=== PATIENT | female | born 1940 | race Caucasian/White ===

== ENCOUNTER 2017-08-07 13:02 | Outpatient (CLI) | payer MEDICARE, BC ==
[2017-08-07] MEDS ORDERED: Gadobenate Dimeglumine 529 MG/1 ML (20ML VIAL) ONE (15:06)
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
--- NOTE | 2017-08-07 16:42 | MRI ---
MRI OF THE LUMBAR SPINE WITH AND WITH CONTRAST: 08/07/17 HISTORY: Low back pain. History of back surgery in 2008. Spinal stenosis. TECHNIQUE: Multiplanar and multisequence MR images were obtained of the lumbar spine without and with IV contras t. FINDINGS: There is grade I anterolisthesis of L5 on S1. The patient is status post fusion of L5 and S1 with rig ht sided pedicle screws. These produce streak artifact limiting evaluation of this level on the right aspect. The vertebral bodies demonstrate normal height without evidence of fracture. The L1-2 interv ertebral disc is narrowed. The L5-S1 intervertebral disc is narrowed. Conus medullaris terminates normally at L1. There is a well circumscribed focus of high T2 signal in the liver which may represent a cyst. The other prevertebral soft tissues are unremarkable. No abnormal enhancement is seen within the central canal on this examination. T12-L1: Unremarkable. L1-2: A moderate disc osteophyte complex is seen. Mild bilateral posterior facet arthrosis. Mild cent ral canal stenosis. Moderate bilateral neural foraminal stenosis. L2-3: Unremarkable. L3-4: A small generalized concentric disc bulge is seen. Mild bilateral posterior facet arthrosis. No central canal stenosis. Mild bilateral neural foraminal stenosis. L4-5: A small disc osteophyte complex is seen. Mild bilateral posterior facet arthrosis. No central c anal stenosis. Mild left neural foraminal stenosis. The right neural foramen cannot be definitely ass essed but is felt there is likely mild right neural foraminal stenosis. L5-S1: A moderate disc osteophyte complex is seen. Moderate bilateral posterior facet arthrosis. No c entral canal stenosis. Moderate bilateral neural foraminal stenosis. Evaluation of the right neural f oramen is limited secondary to artifact from the hardware. IMPRESSION: Degenerative changes of the lumbar spine as above. POS: ERIC
== END 2017-08-07 13:03 | disposition home or self-care (01) ==
LOC: TBSIIMAG 13:02
PROVIDERS: ATTEND Neurological Surgery
DX: M47.12 Other spondylosis with myelopathy, cervical region (principal); M48.061 Spinal stenosis, lumbar region without neurogenic claudication; M99.81 Other biomechanical lesions of cervical region; M51.06 Intervertebral disc disorders with myelopathy, lumbar region; M47.16 Other spondylosis with myelopathy, lumbar region; M47.897 Other spondylosis, lumbosacral region
CPT/HCPCS: 72141; 72158; 82565; A9579

== ENCOUNTER 2017-09-27 06:30 | Day surgery (SDC) | payer MEDICARE, BC ==
[2017-09-26 09:08] VITALS: BMI 19.7
[2017-09-27] MEDS ORDERED: Sodium Chloride 0.9% 10 ML ONE (06:42)
[2017-09-27 07:05] LABS: Hemoglobin 13.1 g/dL (12.0-16.0); Mean Corpuscular HGB CONC 34.4 g/dL (32.0-36.0); Mean Corpuscular Hemoglobin 32.5 pg (27.0-31.0); Mean Corpuscular Volume 94.5 fL (78.0-98.0); Mean Platelet Volume 6.8 fL (7.4-10.4); Platelet Count 187 thou/uL (130-400); RBC Distribution Width 11.2 % (11.5-14.5); Red Blood Cell (RBC) Count 4.03 mill/uL (4.20-5.40)
[2017-09-27] MEDS ORDERED: Fentanyl 100 MCG/2 ML VIAL ONE ×3 (07:14→09:09)
[2017-09-27 07:34] LABS: Anion Gap 10 mmol/L (10-20); BUN (Urea Nitrogen) 19 mg/dL (9.8-20.1); Calc. Creatinine Clearance 43 mL/min (70-130); Calcium 10.2 mg/dL (7.8-10.44); Carbon Dioxide 31 mmol/L (23-31); Chloride 104 mmol/L (98-107); Estimated GFR-MDRD 61; Glucose 89 mg/dL (83-110); Potassium 4.5 mmol/L (3.5-5.1); Sodium 140 mmol/L (136-145)
[2017-09-27] MEDS ORDERED: Ondansetron HCl/PF 4 MG/2 ML Vial IVP PRN ×2 (08:02→10:09)
[2017-09-27] MEDS ORDERED: Promethazine HCl 25 MG/ML VIAL SLOW IVP PRN (08:02)
[2017-09-27] MEDS ORDERED: Promethazine HCl 25 MG/ML VIAL IM PRN (08:02)
[2017-09-27] MEDS ORDERED: traMADol HCl 50 MG TAB PO PRN (10:06)
[2017-09-27] MEDS ORDERED: Acetaminophen 325 MG TAB PO PRN (10:06)
[2017-09-27] MEDS ORDERED: Morphine 4 MG/ML Carpuject SLOW IVP PRN (10:06)
[2017-09-27] MEDS ORDERED: Acetaminophen 650 MG Suppository PR PRN (10:06)
--- NOTE | 2017-09-27 10:28 | OP ---
DATE OF PROCEDURE: 09/27/2017 SURGEON: Samuel Montero M.D. SUPERVISOR FRAME SAMPLE AND PATTERN: Alvaro Garcia PA-C PROCEDURE: Anterior cervical discectomy C5-6 and C6-7, interbody arthrodesis, intravertebral biomech anical device, local morselized autograft, demineralized bone matrix, anterior titanium instrumentati on C5-6 and C6-7. PROCEDURE IN DETAIL: The patient was brought to the operating room and intubated. She was positione d supine in modest extension on a gel-filled donut. Incision was made in the right precervical area and dissecting the sternocleidomastoid muscle, identified the anterior cervical spine and our level w as confirmed by x-ray. We debrided anterior osteophytes, placed distraction across the disc spaces a nd completely removed the intravertebral discs. The bony endplates were decorticated for the purpose of arthrodesis and appropriately sized intravertebral biomechanical PEEK devices were brought into t he field, filled with demineralized bone matrix, local morselized autograft, and tapped securely at C 5-6 and C6-7. Next, an anterior plate was brought into the field and secured to C5, C6, and C7 using two 14 mm screws at each level. The wound was then extensively irrigated, immaculate hemostasis was secured. The wound was closed in anatomic layers.
[2017-09-27] MEDS ORDERED: Loratadine 10 MG TAB PO PRN (11:31)
[2017-09-27] MEDS ORDERED: Senokot 8.6 MG TAB PO PRN (11:31)
[2017-09-27] MEDS ORDERED: Chloraseptic Spray 180 ml Bottle PO PRN (11:31)
[2017-09-27] MEDS ORDERED: Sodium Chloride 0.65% Nasal 44 ML BOT EA NARE PRN (11:31)
[2017-09-27] MEDS ORDERED: Diabetic Tussin 200 MG/10 ML UDCUP PO PRN (11:31)
[2017-09-27] MEDS ORDERED: Milk Of Magnesia 30 ML UDCUP PO PRN (11:31)
[2017-09-27] MEDS ORDERED: Mag-Al 1200 mg/1200 mg/30 ML UDCUP PO PRN (11:31)
[2017-09-27] MEDS ORDERED: Famotidine 20 MG TAB PO PRN (11:31)
[2017-09-27] MEDS ORDERED: hydrALAZINE 20 MG/ML VIAL SLOW IVP PRN (11:31)
[2017-09-27] MEDS ORDERED: Ondansetron ODT 4 MG TAB PO PRN (11:31)
[2017-09-27] MEDS ORDERED: Loperamide HCl 2 MG CAP PO PRN (11:31)
[2017-09-27] MEDS ORDERED: Zolpidem Tartrate 5 MG TAB PO PRN (11:31)
[2017-09-27] MEDS ORDERED: Artificial Tears 18 DROP/0.9 ML EA EYE PRN (11:31)
[2017-09-27] MEDS ORDERED: Eucerin (Mineral Oil/Petrolatum,White) 30 gm Jar TOP PRN (11:31)
[2017-09-27] MEDS: Sodium Chloride 0.9% 1,000 ML IV SCH ×2 (11:51→17:53)
[2017-09-27] MEDS: tiZANidine HCl 4 MG TAB PO PRN (12:03)
[2017-09-27] MEDS: traMADol HCl 50 MG TAB PO PRN ×2 (12:03→18:01)
--- NOTE | 2017-09-27 14:34 | CON ---
DATE OF CONSULTATION: 09/27/2017 PRIMARY CARE PHYSICIAN: Dr. Sarah. PRIMARY ATTENDING: Samuel Montero M.D. REASON FOR ADMISSION: Elective admission for anterior cervical discectomy. REASON FOR CONSULT: Medical comanagement. HISTORY OF PRESENT ILLNESS: A 77-year-old female who has underlying history of cervical spondylosis. The patient has increasing neck pain with radicular symptoms. The patient was admitted by Dr. Montero for anterior cervical discectomy, which was done at C5-C6 and C6-C7 level. Postoperatively, the patient had drain in place after surgery at surgical floor. Sound team was consulted for medical comanagement. The patient has underlying history of hypertension, hypothyroidism, anxiety, depression, and dyslipidemia. The patient did not took her blood pressure medicine today. The patient was having pain at surgical area hence the patient was hungry when I saw this patient, but she denies any UTI symptoms. She denies any chest pain, palpitation, shortness of breath. She denies any constipation, diarrhea, melena or hematochezia. PAST MEDICAL HISTORY: Osteoarthritis, degenerative spine disease with cervical spondylosis, hypertension, dyslipidemia, hypothyroidism, irritable bowel syndrome. PAST PSYCHIATRIC HISTORY: Anxiety and depression. PAST SURGICAL HISTORY: Back surgery, left knee arthroscopy, partial hysterectomy, status post anterior cervical discectomy. FAMILY HISTORY: No strong family history of premature coronary artery disease, stroke or cancer. SOCIAL HISTORY: Patient lives at home with family, no history of tobacco, alcohol or drug abuse. ALLERGIES: No known drug allergy. CURRENT HOME MEDICATIONS: Amlodipine 5 mg p.o. daily, aspirin 81 mg p.o. daily , Lipitor 20 mg p.o. at bedtime, bupropion XL 150 mg p.o. b.i.d., hydrochlorothiazide 12.5 mg p.o. daily, Synthroid 50 mcg p.o. daily, Linzess 290 mcg p.o. daily, Ocuvite 1 capsule p.o. b.i.d. REVIEW OF SYSTEMS: Please see my HPI for pertinent positive and negative. All other review of systems reviewed and negative except as mentioned in the HPI: Constitutional: Weight loss or gain, ability to conduct usual activities. Skin: Rash, itching. Eyes: Double vision, pain. ENT/Mouth: Nose bleeding, neck stiffness, pain, tenderness. Cardiovascular: Palpitations, dyspnea on exertion, orthopnea. Respiratory: Shortness of breath, wheezing, cough, hemoptysis, fever or night sweats. Gastrointestinal: Poor appetite, abdominal pain, heartburn, nausea, vomiting, constipation, or diarrhea. Genitourinary: Urgency, frequency, dysuria, nocturia. Musculoskeletal: Pain, swelling. Neurologic/Psychiatric: Anxiety, depression. Allergy/Immunologic: Skin rash, bleeding tendency. HOSPITAL COURSE: Reviewed. PHYSICAL EXAMINATION: VITAL SIGNS: Temperature 98.6, pulse 72, blood pressure 150/81, respiratory rate 18, saturation 99% on room air, weight 115 pounds. GENERAL: The patient is currently alert, awake, no obvious acute distress. HEAD: Normocephalic, atraumatic. EYES: Pupils round, reactive to light. Extraocular muscle intact. ENT: Oropharynx within normal limits. Moist mucous membranes. No oral lesion , no pharyngeal erythema, no exudate. NECK: The patient does have surgical site covered with a dressing with drain in place. LUNGS: Clear to auscultation without any rhonchi or rales. CARDIAC: S1, S2 regular without any murmur. ABDOMEN: Soft, bowel sounds present, nontender, nondistended. No organomegaly , no mass, no suprapubic tenderness. BACK: Unremarkable, no CVA tenderness. EXTREMITIES: Upper extremity: Passive movement of all joints are normal. Lower extremities: No edema. Good peripheral pulsation. SKIN: No rash. HEMATOLOGICAL: No lymphadenopathy. PSYCHIATRIC: Normal affect. SIGNIFICANT LABORATORY DATA: CBC: WBC 5.0, hemoglobin 13.1, platelet 187. BMP : Sodium 140, potassium 4.5, chloride 104, carbon dioxide 31, anion gap 10, BUN 19, creatinine 0.89, glucose 89, calcium 10.2. X-ray thoracic line negative for any arthritis. X-ray lumbar spine showing degenerative spine changes. MRI cervical spine showing degenerative changes. ASSESSMENT AND PLAN: 1. Cervical spondylosis status post anterior cervical discectomy C6-C7. The patient has drain in place. Management as per primary team. PT, OT evaluation , pain control with pain medication. 2. Hypertension, currently well controlled. We will resume patient's home medication amlodipine 5 mg p.o. daily, hydrochlorothiazide 12.5 mg p.o. daily. If blood pressure is less than 120 systolic, then we will hold on antihypertensive medication. 3. Dyslipidemia. We will continue Lipitor 20 mg p.o. at bedtime. 4. Hypothyroidism. We will continue Synthroid 50 mcg p.o. daily. 5. Macular degeneration. The patient is taking Ocuvite 1 capsule p.o. b.i.d. for prophylaxis. 6. History of irritable bowel syndrome. Continue Linzess 290 mcg p.o. daily. 7. Mild protein calorie malnutrition. The patient will be given nutritional supplements. 8. Deep venous thrombosis prophylaxis not needed and no Lovenox because of cervical spine surgery. 9. Gastrointestinal prophylaxis, Pepcid 20 mg p.o. b.i.d. 10. Code status: The patient is FULL CODE. Patient's daughter is surrogate decision maker. Disposition plan based on clinical course, likely tomorrow. We are pending PT, OT evaluation. Plan of care discussed with the family member at bedside. Thank you for the consult. We will follow up with you while in hospital. HANNAH
[2017-09-27] MEDS ORDERED: Dexamethasone 20 MG/5 ML VIAL ONE (15:24)
[2017-09-27] MEDS ORDERED: PHENYLEPHRINE-NS 100 MCG/ML 10 ML SYRINGE ONE (15:24)
[2017-09-27] MEDS ORDERED: PROPOFOL 200 MG/20 ML VIAL ONE (15:24)
[2017-09-27] MEDS ORDERED: Glycopyrrolate 0.2 MG/ML 5 ML SYRINGE ONE (15:24)
[2017-09-27] MEDS ORDERED: Lidocaine 1% PF 5 ML VIAL ONE (15:24)
[2017-09-27] MEDS ORDERED: Vit C/E/Zn/Coppr/Lutein/Zeaxan [Preservision Areds 2 Softgel] PO SCH (17:00)
[2017-09-27] MEDS: CEFAZOLIN/Water 2 GM/20 ML SYRINGE SLOW IVP SCH (17:50)
[2017-09-27] MEDS ORDERED: Atorvastatin Calcium 20 MG TAB PO SCH ×2 (21:00)
[2017-09-27] MEDS: Vit A,C & E/Lutein/Minerals Tablet PO SCH (21:33)
[2017-09-27] MEDS: Bupropion 150 MG XL TAB PO SCH (21:34)
[2017-09-28] MEDS: CEFAZOLIN/Water 2 GM/20 ML SYRINGE SLOW IVP SCH (00:31)
[2017-09-28] MEDS: Sodium Chloride 0.9% 1,000 ML IV SCH ×2 (00:31→13:02)
[2017-09-28] MEDS: traMADol HCl 50 MG TAB PO PRN ×2 (00:38→09:05)
[2017-09-28] MEDS: tiZANidine HCl 4 MG TAB PO PRN ×2 (00:38→09:07)
[2017-09-28] MEDS ORDERED: Levothyroxine Sodium 50 MCG TAB PO SCH ×2 (06:00)
[2017-09-28] MEDS ORDERED: LINZESS PO SCH (07:30)
[2017-09-28] MEDS ORDERED: Bupropion 150 MG XL TAB PO SCH (09:00)
[2017-09-28] MEDS ORDERED: Amlodipine 5 MG TAB PO SCH ×2 (09:00)
[2017-09-28] MEDS ORDERED: Hydrochlorothiazide 25 MG TAB PO SCH (09:00)
[2017-09-28] MEDS: Bupropion 150 MG XL TAB PO SCH (09:09)
[2017-09-28] MEDS: Vit A,C & E/Lutein/Minerals Tablet PO SCH (09:09)
--- NOTE | 2017-09-28 09:34 | PDOC.PN ---
- Subjective Encounter Start Date: 09/28/17 Encounter Start Time: 07:40 -: old records requested/rev Patient seen and examined. No new complaints. No overnight events - Objective Resuscitation Status: Resuscitation Status FULL:Full Resuscitation MAR Reviewed: Yes Vital Signs & Weight: Vital Signs (12 hours) Temp Pulse Resp BP BP Pulse Ox 09/28/17 09:09 65 148/70 H 09/28/17 07:28 98 F 65 14 148/70 H 99 09/28/17 03:41 98.3 F 71 16 124/67 97 09/28/17 00:00 98.3 F 70 16 136/67 98 Weight Weight 115 lb I&O: 09/27/17 09/28/17 09/29/17 06:59 06:59 06:59 Intake Total 1150 Output Total 25 Balance 1125 Result Diagrams: 09/27/17 06:51 09/27/17 06:51 Phys Exam - Physical Examination Constitutional: NAD HEENT: PERRLA, moist MMs, sclera anicteric Neck: no JVD, supple drain+ Respiratory: no wheezing, no rales, no rhonchi Cardiovascular: RRR, no significant murmur, no rub Gastrointestinal: soft, non-tender, no distention, positive bowel sounds Musculoskeletal: no edema, pulses present Neurological: non-focal, normal sensation, moves all 4 limbs Psychiatric: normal affect, A&O x 3 Skin: no rash, normal turgor Dx/Plan (1) S/P cervical discectomy Code(s): Z98.890 - OTHER SPECIFIED POSTPROCEDURAL STATES Status: Acute (2) Anxiety and depression Code(s): F41.9 - ANXIETY DISORDER, UNSPECIFIED; F32.9 - MAJOR DEPRESSIVE DISORDER, SINGLE EPISODE, UNSPECIFIED Status: Chronic (3) Cervical spondylosis with myelopathy and radiculopathy Code(s): M47.12 - OTHER SPONDYLOSIS WITH MYELOPATHY, CERVICAL REGION; M47.22 - OTHER SPONDYLOSIS WITH RADICULOPATHY, CERVICAL REGION Status: Chronic (4) H/O irritable bowel syndrome Code(s): Z87.19 - PERSONAL HISTORY OF OTHER DISEASES OF THE DIGESTIVE SYSTEM Status: Chronic (5) Hypertension Code(s): I10 - ESSENTIAL (PRIMARY) HYPERTENSION Status: Chronic (6) Hypothyroidism Code(s): E03.9 - HYPOTHYROIDISM, UNSPECIFIED Status: Chronic (7) Macular degeneration Code(s): H35.30 - UNSPECIFIED MACULAR DEGENERATION Status: Chronic - Plan cont current plan of care * medication reviewed as below * symptomatic treatment * medically stable for discharge * discharge medication reconciliation done. * see discharge soheilay for details. Review of Systems - Review of Systems ENT: negative: Ear Pain, Ear Discharge, Nose Pain, Nose Discharge, Nose Congestion, Mouth Pain, Mouth Swelling, Throat Pain, Throat Swelling, Other Respiratory: negative: Cough, Dry, Shortness of Breath, Hemoptysis, SOB with Excertion, Pleuritic Pain, Sputum, Wheezing Cardiovascular: negative: chest pain, palpitations, orthopnea, paroxysmal nocturnal dyspnea, edema, light headedness, other Gastrointestinal: negative: Nausea, Vomiting, Abdominal Pain, Diarrhea, Constipation, Melena, Hematochezia, Other Genitourinary: negative: Dysuria, Frequency, Incontinence, Hematuria, Retention , Other Musculoskeletal: negative: Neck Pain, Shoulder Pain, Arm Pain, Back Pain, Hand Pain, Leg Pain, Foot Pain, Other Skin: negative: Rash, Lesions, Laureano, Bruising, Other - Medications/Allergies Allergies/Adverse Reactions: Allergies Allergy/AdvReac Type Severity Reaction Status Date / Time No Known Allergies Allergy Unverified 09/26/17 09:08 Medications: Current Medications Acetaminophen (Tylenol) 650 mg PO Q4H PRN PRN Reason: Headache/Fever Acetaminophen (Tylenol) 650 mg FL Q4H PRN PRN Reason: HEADACHE OR FEVER IF NPO Al Hydroxide/Mg Hydroxide (Maalox) 15 ml PO Q4H PRN PRN Reason: Heartburn or Indigestion Amlodipine Besylate (Norvasc) 5 mg PO DAILY [facility] Last Admin: 09/28/17 09:09 Dose: 5 mg Artificial Tears (Tears Naturale) 0 drop EA EYE PRN PRN PRN Reason: Dry Eyes Atorvastatin Calcium (Lipitor) 20 mg PO HS [facility] Last Admin: 09/27/17 21:34 Dose: 20 mg Bupropion HCl (Wellbutrin Xl) 150 mg PO BID [facility] Last Admin: 09/28/17 09:09 Dose: 150 mg Famotidine (Pepcid) 20 mg PO DAILYPRN PRN PRN Reason: Heartburn or Indigestion Guaifenesin (Robitussin Sf) 200 mg PO Q4H PRN PRN Reason: Cough Hydralazine HCl (Apresoline) 10 mg SLOW IVP Q4H PRN PRN Reason: Systolic BP > 180 Hydrochlorothiazide (Hydrochlorothiazide) 12.5 mg PO DAILY [facility] Last Admin: 09/28/17 09:08 Dose: 12.5 mg Sodium Chloride (Normal Saline 0.9%) 1,000 mls @ 75 mls/hr IV .[id number] [facility] Last Admin: 09/28/17 00:31 Dose: Not Given Levothyroxine Sodium (Synthroid) 50 mcg PO 0600 [facility] Last Admin: 09/28/17 06:17 Dose: 50 mcg Loperamide HCl (Imodium) 2 mg PO PRN PRN PRN Reason: Diarrhea/Loose Stools Loratadine (Claritin) 10 mg PO DAILYPRN PRN PRN Reason: Sinus Symptoms Magnesium Hydroxide (Milk Of Magnesium) 30 ml PO DAILYPRN PRN PRN Reason: Constipation Mineral Oil/White Petrolatum (Eucerin Cream) 0 gm TOP BIDPRN PRN PRN Reason: Dry Skin Morphine Sulfate (Morphine) 2 mg SLOW IVP Q1H PRN PRN Reason: Moderate Breakthrough Pain Morphine Sulfate (Morphine Sulfate) 4 mg SLOW IVP Q1H PRN PRN Reason: SEVERE BREAKTHRU PAIN Multivitamins/Minerals (Ocuvite With Lutein) 1 tab PO BID [facility] Last Admin: 09/28/17 09:09 Dose: 1 tab Ondansetron HCl (Zofran) 4 mg IVP Q6H PRN PRN Reason: Nausea/Vomiting Ondansetron HCl (Zofran Odt) 4 mg PO Q6H PRN PRN Reason: Nausea/Vomiting Linaclotide [Linzess (] 290 Mcg) 0 each PO DAILY-AC [facility] Phenol (Chloraseptic [place] 180 Ml Bot) 0 ml PO PRN PRN PRN Reason: Sore Throat Last Admin: 09/27/17 21:31 Dose: 2 spr Senna (Senokot) 2 tab PO HSPRN PRN PRN Reason: Constipation Sodium Chloride (Flush - Normal Saline) 10 ml IVF Q12HR [facility] Last Admin: 09/28/17 09:10 Dose: 10 ml Sodium Chloride (Flush - Normal Saline) 10 ml IVF PRN PRN PRN Reason: Saline Flush Sodium Chloride ([place] Nasal [place] 0.65%) 0 ml EA NARE QIDPRN PRN PRN Reason: Nasal Congestion Tizanidine HCl (Zanaflex) 4 mg PO Q6H PRN PRN Reason: MUSCLE SPASM Last Admin: 09/28/17 09:07 Dose: 4 mg Tramadol HCl (Ultram) 50 mg PO Q6H PRN PRN Reason: PAIN (1-3) Tramadol HCl (Ultram) 100 mg PO Q6H PRN PRN Reason: PAIN (4-6) Last Admin: 09/28/17 09:05 Dose: 100 mg Zolpidem Tartrate (Ambien) 5 mg PO HSPRN PRN PRN Reason: Insomnia
--- NOTE | 2017-09-28 10:33 | DIS ---
DATE OF ADMISSION: 09/27/2017 DATE OF DISCHARGE: 09/28/2017 PRIMARY CARE PHYSICIAN: Dr. Sarah. PRIMARY ATTENDING: Dr. Montero. DISCHARGE DISPOSITION: Home. PRIMARY DISCHARGE DIAGNOSIS: Anterior cervical discectomy. SECONDARY DISCHARGE DIAGNOSES: Anxiety, depression, cervical spondylosis with myelopathy and radicul opathy, history of irritable bowel syndrome, hypertension, hypothyroidism, macular degeneration. PRIMARY PROCEDURE/OPERATION: Anterior cervical diskectomy. RADIOLOGICAL INVESTIGATION: None. SIGNIFICANT LABORATORY DATA: WBC 5.0, hemoglobin 13.1, platelet 187. Sodium 140, potassium 4.5, BUN 19, creatinine 0.89, and calcium 10.2. DISCHARGE MEDICATIONS: Amlodipine 5 mg p.o. daily, Lipitor 20 mg p.o. at bedtime, bupropion XL 150 m g p.o. b.i.d., HCTZ 12.5 mg p.o. daily, Synthroid 50 mcg p.o. daily, Linzess 290 mcg p.o. daily, Adolfo flex 2 mg q.4 hourly p.r.n., tramadol 50 mg 1 or 2 tablets q.6 hourly p.r.n., Ocuvite 1 capsule p.o. b.i.d. CONTRAINDICATIONS: None. CODE STATUS: FULL CODE. INPATIENT CONSULTANTS: Dr. Montero was primary while in hospital. Sound Team was consulted for [facility] management. TEST RESULTS PENDING ON DISCHARGE: None. ALLERGIES: No known drug allergy. DISCHARGE PLAN: Post hospital, patient will follow up with primary care physician and Dr. Winston hernandez s tamir. HOSPITAL COURSE: A 77-year-old female who has cervical spondylosis with myelopathy and radiculopathy . She was electively admitted for anterior cervical discectomy at C6-C7 level which was done by Dr. Montero without any complication. The patient had drain after surgery. Surgical Floor Sound Team w as consulted for medical comanagement. Patient medical problem remains stable and we resumed all her home medication except aspirin. The patient will continue all her previous medication except aspiri n after discharge. Aspirin will be restarted upon clearance from neurosurgeon. The patient was doin g very well. Her drain was removed today. The patient is seen and examined at bedside today. Vic hwang see my progress note from today for further details. She will continue above-mentioned discharge m edications. We will sign off.
[2017-09-28 11:49] VITALS: BP 135/74; TEMP 98.2
== END 2017-09-28 12:47 | disposition home or self-care (01) ==
LOC: SDC 06:30 → SURG B 09:45 → SDC 09-28 12:47
PROVIDERS: ATTEND Neurological Surgery
PROC: 0RG20A0 Fusion of 2 or more Cervical Vertebral Joints with Interbody Fusion Device, Anterior Approach, Anterior Column, Open Approach (ICD-10-PCS; principal; 2017-09-27)
PROC: 0RG2070 Fusion of 2 or more Cervical Vertebral Joints with Autologous Tissue Substitute, Anterior Approach, Anterior Column, Open Approach (ICD-10-PCS; 2017-09-27)
PROC: 0RB30ZZ Excision of Cervical Vertebral Disc, Open Approach (ICD-10-PCS; 2017-09-27)
DX: M47.12 Other spondylosis with myelopathy, cervical region (principal); M47.22 Other spondylosis with radiculopathy, cervical region; I10 Essential (primary) hypertension; E03.9 Hypothyroidism, unspecified; F41.9 Anxiety disorder, unspecified; F32.9 Major depressive disorder, single episode, unspecified; M19.90 Unspecified osteoarthritis, unspecified site; M48.02 Spinal stenosis, cervical region; E78.5 Hyperlipidemia, unspecified; H35.30 Unspecified macular degeneration; E44.1 Mild protein-calorie malnutrition; Z68.1 Body mass index [BMI] 19.9 or less, adult; Z79.82 Long term (current) use of aspirin; Z79.899 Other long term (current) drug therapy
CPT/HCPCS: 20930; 20937; 22551; 22552; 22853 ×2; 76001; 80048; 85027; 93005; 96374; C1713 ×2; C1776; 93010; A4216; J0131; J1100; J2001; J2270; J2704; J3010; J3490

== ENCOUNTER 2017-10-11 11:23 | Outpatient (CLI) | payer MEDICARE, BC ==
--- NOTE | 2017-10-11 14:29 | RAD ---
CERVICAL SPINE THREE VIEWS: INDICATIONS: Surgical followup. COMPARISON: Prior MRI of the cervical spine, dated 08/07/2017. FINDINGS: Since the comparison examination, there has been interim performance of a C5 through C7 ACDF. The AC DF plate and interbody cages project in the expected position. The slight anterior translation of C3 on C4 is stable. Mild multilevel spondylosis is similar appearing. The lung apices are clear. The re is a 1.8 cm oval, well circumscribed density overlying the frontal skull, on the lateral projectio n. This may reflect a small osteoma or possibly a meningioma. This may also reflect a prominent dura l calcification. IMPRESSION: 1. Interval anterior cervical diskectomy and fusion of the cervical spine. Mild prevertebral soft t issue swelling is seen near this region, which may be post surgical in nature. 2. Small sclerotic lesion within the frontal calvarium, measuring up to 1.8 cm, which may reflect a small osteoma of the skull. A small calcified meningioma or dural calcification is not excluded. Re commend consideration for CT examination of the brain for further characterization. CODE T POS: DIANELYS
== END 2017-10-11 11:24 | disposition home or self-care (01) ==
LOC: TBSIIMAG 11:23
PROVIDERS: ATTEND Neurological Surgery
DX: M54.12 Radiculopathy, cervical region (principal); M79.89 Other specified soft tissue disorders; Z98.890 Other specified postprocedural states; Z98.1 Arthrodesis status
CPT/HCPCS: 72040

== ENCOUNTER 2017-12-18 15:40 | Outpatient (CLI) | payer MEDICARE, BC ==
--- NOTE | 2017-12-18 16:55 | RAD ---
CERVICAL SPINE SERIES 3 VIEWS: Date: 12/18/17 HISTORY: Follow-up surgery. COMPARISON: 10/11/17 exam. FINDINGS: Anterior cervical fusion with plate and screws again noted at the C5-C7 level. Markers of disc implan ts at the intervening disc levels are in appropriate position. Minimal anterolisthesis of C4 on C5 is stable. IMPRESSION: Stable postop change. POS: [facility]
== END 2017-12-18 15:41 | disposition home or self-care (01) ==
LOC: TBSIIMAG 15:40
PROVIDERS: ATTEND Neurological Surgery
DX: M50.30 Other cervical disc degeneration, unspecified cervical region (principal); Z98.1 Arthrodesis status
CPT/HCPCS: 72040

== ENCOUNTER 2018-03-19 14:45 | Outpatient (CLI) | payer MEDICARE, BC ==
--- NOTE | 2018-03-19 15:46 | RAD ---
CERVICAL SPINE THREE VIEWS: INDICATIONS: Fall with neck surgery. COMPARISON: Prior exam dated 12/18/2017. FINDINGS: ACDF spanning C5 through C7 is unchanged. Intervertebral bone cages are similar appearing. Slight a nterior translation of C3 on C4 and of C4 on C5 is similar appearing. The lateral masses are symmetr ic. The lung apices are clear. IMPRESSION: Stable postoperative cervical spine. POS: [facility]
== END 2018-03-19 14:46 | disposition home or self-care (01) ==
LOC: TBSIIMAG 14:45
PROVIDERS: ATTEND Neurological Surgery
DX: M54.12 Radiculopathy, cervical region (principal); Z98.1 Arthrodesis status
CPT/HCPCS: 72040